=== PATIENT | female | born 1975 | race Caucasian/White ===

== ENCOUNTER 2021-02-05 06:00 | Emergency (ER) | payer BC ==
[2021-02-05] MEDS ORDERED: Meperidine PF 25 MG/ML SDV IVPUSH ONE (06:20)
[2021-02-05] MEDS ORDERED: Ondansetron 4 MG/2 ML SDV IVPUSH ONE (06:20)
[2021-02-05] MEDS ORDERED: Sodium Chloride 0.9% 1,000 ML IV ONE (06:20)
--- NOTE | 2021-02-05 06:28 | EDM.PDOC ---
<Conor Aguila P - Last Filed: 02/05/21 09:16> ED HPI GENERAL MEDICAL PROBLEM - General Chief Complaint: Abdominal Pain Stated Complaint: Abdominal pain, N/V Time Seen by Provider: 02/05/21 06:10 Source of Information: Reports: Patient History Limitations: Reports: No Limitations - History of Present Illness INITIAL COMMENTS - FREE TEXT/NARRATIVE: Patient presents the ER with ongoing 3 days of abdominal pain that she describes as a 10 out of 10 sharp stabbing dull pressure all over but more on the left side but it other place 2 days worth of nausea vomiting constantly at least 6-7 times a day with intermittent episodes of blood with the vomitus. No bowel movement for 3 days. Patient states she is try to eat but cannot she has been able to keep down some fluids but very little she denies any fever or chills back pain dysuria. Patient states she has had this type of episode more than 100 times in the last year or so and has been seen multiple times in the emergency room's unsure if she is ever had a CT though but last episode she did have x-rays I told her nothing was wrong she was discharged she has seen her primary care provider as well she thinks she may have had a EGD maybe a year ago and told it was normal. She says ever where she keeps going she does not get a true diagnosis or an answer of what is going on they always keep telling her she is just dehydrated. She cannot remember she is or had a colonoscopy or seen a GI specialist She has not taken any medication for the issues tonight She denies any alcohol usage or drug usage Onset: Gradual Duration: Day(s):, Week(s):, Chronic Location: Reports: Abdomen Quality: Reports: Dull, Pressure, Same as Previous Episode, Sharp, Stabbing Severity: Severe Improves with: Reports: None Worsens with: Reports: None Associated Symptoms: Reports: Nausea/Vomiting. Denies: Confusion, Chest Pain, Cough, Fever/Chills, Headaches, Loss of Appetite, Malaise, Shortness of Breath, Syncope Left upper abdomen Pain Score (Numeric/FACES): 10 - Related Data Allergies Allergy/AdvReac Type Severity Reaction Status Date / Time ibuprofen [From Motrin] Allergy Hives Verified 02/05/21 07:15 morphine Allergy Hives Verified 02/05/21 07:15 Home Meds: Home Meds . [No Known Home Meds] 02/05/21 [History] ED ROS GENERAL - Review of Systems Review Of Systems: See Below Constitutional: Reports: No Symptoms HEENT: Reports: No Symptoms Respiratory: Reports: No Symptoms Cardiovascular: Reports: No Symptoms Endocrine: Reports: No Symptoms GI/Abdominal: Reports: Abdominal Pain, Nausea, Vomiting. Denies: Anorexia, Black Stool, Bloody Stool, Constipation, Diarrhea, Decreased Appetite, Difficulty Swallowing, Distension, Flatus, Hematemesis, Hematochezia, Melena, Mucous in Stool, Stool Incontinence : Reports: No Symptoms Musculoskeletal: Reports: No Symptoms Skin: Reports: No Symptoms Neurological: Reports: No Symptoms Psychiatric: Reports: No Symptoms Hematologic/Lymphatic: Reports: No Symptoms Immunologic: Reports: No Symptoms ED EXAM, GI/ABD - Physical Exam Exam: See Below Exam Limited By: No Limitations General Appearance: Alert, WD/WN, No Apparent Distress, Anxious, Other (Patient noted upon entering the room laying in the bed shifting from sitting to lying with no issues been standing up vomiting been able to lay back down with no issues noted ) Eyes: Bilateral: Normal Appearance, EOMI (perrla no icterus noted) Nose: Normal Inspection, Normal Mucosa, No Blood Throat/Mouth: Normal Inspection, Normal Lips, Normal Teeth, Normal Gums, Normal Oropharynx, Normal Voice, No Airway Compromise, Other (Moist mucous membranes) Head: Atraumatic, Normocephalic Neck: Normal Inspection, Supple, Non-Tender, Full Range of Motion Respiratory/Chest: No Respiratory Distress, Lungs Clear, Normal Breath Sounds, No Accessory Muscle Use, Chest Non-Tender Cardiovascular: Normal Peripheral Pulses, Regular Rate, Rhythm, No Edema, No Gallop, No JVD, No Murmur, No Rub GI/Abdominal Exam: Normal Bowel Sounds, Soft, No Organomegaly, No Distention, No Abnormal Bruit, Tender, Other (Patient had no tenderness palpation with stethoscope but diffuse tenderness to palpation generalized she had negative pelvic rock negative obturator negative heel slap no CVA tenderness noted bilateral). No: Non-Tender, Guarding, Rigid, Rebound Back Exam: Normal Inspection, Full Range of Motion Extremities: Normal Inspection, Normal Range of Motion, No Pedal Edema, Normal Capillary Refill Neurological: Alert, Oriented, CN II-XII Intact, Normal Cognition, No Motor/Sensory Deficits Psychiatric: Normal Affect, Normal Mood Skin Exam: Warm, Dry, Intact, Normal Color, No Rash Course - Vital Signs Text/Narrative:: CBC CMP CRP UA urine UDS 1 L normal saline bolus with Zofran 8 mg Demerol [address] abdomen pelvis with IV contrast White count 16,000 potassium 3.2 BUN/creatinine 20/1.9 UDS positive THC negative test disposition on CT abdomen pelvis held up secondary to no rosalba on staff yet Patient was rechecked states she is still hurting she usually gets Dilaudid she says but has a morphine allergy Patient admits she has not taken her blood pressure medicine the last 2 days but she is unsure of what it is Will finish the bag normal saline bolus then go to a 20 mEq potassium rider . metoprolol 50 mg p.o. was given secondary to this is patient's daily medication we will recheck blood pressure prior to discharge Contrast was held secondary to BUN and creatinine on the scan. Care was turned over with Basia at 915 for disposition Departure - Departure Disposition: Home, Self-Care 01 Clinical Impression: Abdominal pain, Hyperkalemia, Nausea & vomiting, Marijuana abuse, Hypertension - Discharge Information *PRESCRIPTION DRUG MONITORING PROGRAM REVIEWED*: No *COPY OF PRESCRIPTION DRUG MONITORING REPORT IN PATIENT ULICES: No Instructions: Hypertension, Adult, Abdominal Pain, Adult Referrals: PCP,Not In Area [Primary Care Provider] - Forms: ED Department Discharge Additional Instructions: 1. Push fluids 2. Stevens diet 3. Carafate 1 gm three times a day prior to meals 4. Protonix 40 mg daily 5. See primary care provider on return to [place], may need further endoscopy. - Problem List & Annotations (1) Abdominal pain SNOMED Code(s): 47000623 Code(s): R10.9 - UNSPECIFIED ABDOMINAL PAIN Status: Acute Current Visit: Yes (2) Hyperkalemia SNOMED Code(s): 83459635 Code(s): E87.5 - HYPERKALEMIA Status: Acute Current Visit: Yes (3) Marijuana abuse SNOMED Code(s): 41875473 Code(s): F12.10 - CANNABIS ABUSE, UNCOMPLICATED Status: Acute Current Visit: Yes (4) Nausea & vomiting SNOMED Code(s): 01384787 Code(s): R11.2 - NAUSEA WITH VOMITING, UNSPECIFIED Status: Acute Current Visit: Yes <MendezNina Mueller - Last Filed: 02/05/21 10:02> Course - Vital Signs Last Recorded V/S: Last Vital Signs Temp 97.3 F 02/05/21 06:00 Pulse 65 02/05/21 09:10 Resp 16 02/05/21 06:00 BP 161/105 H 02/05/21 09:10 Pulse Ox 98 02/05/21 06:00 - Orders/Labs/Meds Orders: Active Orders 24 hr Category Date Time Status Metoprolol Succinate [Toprol XL] Med 02/06/21 08:00 Active 50 mg PO DAILY Medication Orders Metoprolol Succinate (Metoprolol Succinate 50 Mg Tab.Er) 50 mg PO DAILY RABIA Last Admin: 02/05/21 09:10 Dose: 50 mg Documented by: JAMEL Labs: Laboratory Tests 02/05/21 02/05/21 02/05/21 Range/Units 06:49 06:49 07:10 WBC 16.7 H (4.0-10.0) x10^3/uL RBC 5.23 (4.00-5.50) x10^6/uL Hgb 16.1 H (12.0-16.0) g/dL Hct 47.3 H (33.0-47.0) % MCV 90.4 (78.0-93.0) fL MCH 30.8 (26.0-32.0) pg MCHC 34.0 (32.0-36.0) g/dL RDW Coeff of Ashley 13.4 (10.0-15.0) % Plt Count 344 (130-400) x10^3/uL Immature Gran % (Auto) 0.20 (0.00-0.43) % Neut % (Auto) 80.4 H (50.0-80.0) % Lymph % (Auto) 11.7 L (25.0-50.0) % Wood % (Auto) 7.4 (2.0-11.0) % Eos % (Auto) 0.2 (0.0-4.0) % Baso % (Auto) 0.1 L (0.2-1.2) % Neut # (Auto) 13.4 H (1.8-7.7) x10^3/uL Lymph # (Auto) 2.0 (1.0-4.8) x10^3/uL Wood # (Auto) 1.2 H (0.0-0.8) x10^3/uL Eos # (Auto) 0.0 (0.0-0.5) x10^3/uL Baso # (Auto) 0.0 (0.0-0.2) x10^3/uL Immature Gran # (Auto) 0.04 (0.00-0.07) x10^3/uL Sodium 139 (136-145) mmol/L Potassium 3.2 L (3.5-5.1) mmol/L Chloride 101 (98-107) mmol/L Carbon Dioxide 25 (21-32) mmol/L Anion Gap 16.2 H (5-15) mmol/L BUN 20 H (7-18) mg/dL Creatinine 1.9 H (0.55-1.02) mg/dL Est Cr Clr Drug Dosing 35.37 mL/min Estimated GFR (MDRD) 29 Glucose 142 H (70-99) mg/dL Calcium 9.7 (8.5-10.1) mg/dL Corrected Calcium 9.1 (8.5-10.1) mg/dL Total Bilirubin 0.4 (0.2-1.0) mg/dL AST 14 L (15-37) U/L ALT 14 (14-59) U/L Alkaline Phosphatase 50 (46-116) U/L C-Reactive Protein < 0.2 (<=0.9) mg/dL Total Protein 8.4 H (6.4-8.2) g/dL Albumin 4.7 (3.4-5.0) g/dL Globulin 3.7 Albumin/Globulin Ratio 1.27 Urine Color (YELLOW) Urine Appearance (CLEAR) Urine pH (5.0-8.0) Ur Specific Anza Urine Protein (NEGATIVE) mg/dL Urine Glucose (UA) (NEGATIVE) mg/dL Urine Ketones (NEGATIVE) mg/dL Urine Occult Blood (NEGATIVE) Urine Nitrite (NEGATIVE) Urine Bilirubin (NEGATIVE) Urine Urobilinogen (0.2) EU/dL Ur Leukocyte Esterase (NEGATIVE) Urine RBC (NOT SEEN) /HPF Urine WBC (NOT SEEN) /HPF Ur Squamous Epith Cells (NOT SEEN) /HPF Calcium Oxalate Crystal (NOT SEEN) /HPF Urine Bacteria (NOT SEEN) /HPF Urine Mucus (NOT SEEN) /LPF Urine HCG, Qual Negative (NEGATIVE) Urine Opiates Screen (NEGATIVE) Ur Buprenorphine Scrn (NEGATIVE) Ur Oxycodone Screen (NEGATIVE) Urine Methadone Screen (NEGATIVE) Ur Barbiturates Screen (NEGATIVE) Ur Phencyclidine Scrn (NEGATIVE) Ur Amphetamine Screen (NEGATIVE) U Methamphetamines Scrn (NEGATIVE) Urine MDMA Screen (NEGATIVE) U Benzodiazepines Scrn (NEGATIVE) U Cocaine Metab Screen (NEGATIVE) U Marijuana (THC) Screen (NEGATIVE) 02/05/21 02/05/21 Range/Units 07:10 07:10 WBC (4.0-10.0) x10^3/uL RBC (4.00-5.50) x10^6/uL Hgb (12.0-16.0) g/dL Hct (33.0-47.0) % MCV (78.0-93.0) fL MCH (26.0-32.0) pg MCHC (32.0-36.0) g/dL RDW Coeff of Ashley (10.0-15.0) % Plt Count (130-400) x10^3/uL Immature Gran % (Auto) (0.00-0.43) % Neut % (Auto) (50.0-80.0) % Lymph % (Auto) (25.0-50.0) % Wood % (Auto) (2.0-11.0) % Eos % (Auto) (0.0-4.0) % Baso % (Auto) (0.2-1.2) % Neut # (Auto) (1.8-7.7) x10^3/uL Lymph # (Auto) (1.0-4.8) x10^3/uL Wood # (Auto) (0.0-0.8) x10^3/uL Eos # (Auto) (0.0-0.5) x10^3/uL Baso # (Auto) (0.0-0.2) x10^3/uL Immature Gran # (Auto) (0.00-0.07) x10^3/uL Sodium (136-145) mmol/L Potassium (3.5-5.1) mmol/L Chloride (98-107) mmol/L Carbon Dioxide (21-32) mmol/L Anion Gap (5-15) mmol/L BUN (7-18) mg/dL Creatinine (0.55-1.02) mg/dL Est Cr Clr Drug Dosing mL/min Estimated GFR (MDRD) Glucose (70-99) mg/dL Calcium (8.5-10.1) mg/dL Corrected Calcium (8.5-10.1) mg/dL Total Bilirubin (0.2-1.0) mg/dL AST (15-37) U/L ALT (14-59) U/L Alkaline Phosphatase (46-116) U/L C-Reactive Protein (<=0.9) mg/dL Total Protein (6.4-8.2) g/dL Albumin (3.4-5.0) g/dL Globulin Albumin/Globulin Ratio Urine Color Yellow (YELLOW) Urine Appearance Cloudy H (CLEAR) Urine pH 5.5 (5.0-8.0) Ur Specific Anza 1.025 Urine Protein >=300 H (NEGATIVE) mg/dL Urine Glucose (UA) Negative (NEGATIVE) mg/dL Urine Ketones Trace H (NEGATIVE) mg/dL Urine Occult Blood Small H (NEGATIVE) Urine Nitrite Negative (NEGATIVE) Urine Bilirubin Small H (NEGATIVE) Urine Urobilinogen 0.2 (0.2) EU/dL Ur Leukocyte Esterase Negative (NEGATIVE) Urine RBC 0-5 (NOT SEEN) /HPF Urine WBC 5-10 H (NOT SEEN) /HPF Ur Squamous Epith Cells Few H (NOT SEEN) /HPF Calcium Oxalate Crystal Few H (NOT SEEN) /HPF Urine Bacteria Rare (NOT SEEN) /HPF Urine Mucus Rare H (NOT SEEN) /LPF Urine HCG, Qual (NEGATIVE) Urine Opiates Screen Negative (NEGATIVE) Ur Buprenorphine Scrn Negative (NEGATIVE) Ur Oxycodone Screen Negative (NEGATIVE) Urine Methadone Screen Negative (NEGATIVE) Ur Barbiturates Screen Negative (NEGATIVE) Ur Phencyclidine Scrn Negative (NEGATIVE) Ur Amphetamine Screen Negative (NEGATIVE) U Methamphetamines Scrn Negative (NEGATIVE) Urine MDMA Screen Negative (NEGATIVE) U Benzodiazepines Scrn Negative (NEGATIVE) U Cocaine Metab Screen Negative (NEGATIVE) U Marijuana (THC) Screen Positive H (NEGATIVE) Meds: Medications Generic Name Dose Route Start Last Admin Trade Name Freq PRN Reason Stop Dose Admin Metoprolol Succinate 50 mg 02/06/21 08:00 02/05/21 09:10 Metoprolol Succinate 50 Mg Tab.Er PO 50 mg DAILY RABIA Administration Discontinued Medications Generic Name Dose Route Start Last Admin Trade Name Galdino PRN Reason Stop Dose Admin Al Hydroxide/Mg Hydroxide 30 ml 02/05/21 09:31 Gi Cocktail Oral Solution 30 Ml PO 02/05/21 09:32 ONETIME ONE Dicyclomine HCl 20 mg 02/05/21 07:23 02/05/21 08:01 Dicyclomine 20 Mg/2 Ml Sdv IM 02/05/21 07:24 20 mg ONETIME ONE Administration Sodium Chloride 1,000 mls @ 999 mls/hr 02/05/21 06:20 02/05/21 06:45 Normal Saline IV 02/05/21 07:20 999 mls/hr ONETIME ONE Administration Meperidine HCl 25 mg 02/05/21 06:20 02/05/21 06:55 Meperidine Pf 25 Mg/Ml Sdv IVPUSH 02/05/21 06:21 25 mg ONETIME ONE Administration Metoprolol Succinate Confirm 02/05/21 09:19 Metoprolol Succinate 50 Mg Tab.Er Administered 02/05/21 09:20 Dose 50 mg .ROUTE .STK-MED ONE Ondansetron HCl 4 mg 02/05/21 06:20 02/05/21 06:53 Ondansetron 4 Mg/2 Ml Sdv IVPUSH 02/05/21 06:21 4 mg ONETIME ONE Administration Ondansetron HCl Confirm 02/05/21 06:58 02/05/21 07:21 Ondansetron 4 Mg/2 Ml Sdv Administered 02/05/21 06:59 Not Given Dose 4 mg .ROUTE .STK-MED ONE Pantoprazole Sodium 40 mg 02/05/21 09:33 Pantoprazole 40 Mg Vial IVPUSH 02/05/21 09:34 ONETIME ONE - Re-Assessments/Exams Free Text/Narrative Re-Assessment/Exam: 02/05/21 09:45 Patient continues to have dry heaves. Protonix given IV. 02/05/21 09:58 CT scan is normal. Did discuss with patient. Continues to ask for something for pain. Questioned if pain and vomiting could be associated with marijuana use. States took the marijuana to help with the pain. Advised will need to follow up with her primary provider to determine if further need for an EGD again due to the blood in her emesis. Has been forcefully vomiting and could be causing further bleeding, emesis is blood-tinged, no gross blood noted. Will discharge home on Protonix and Carafate. Has 3 hours to travel so did agree to give her a tramadol for the ride to home in [place]. Discussed her retching so may have difficulty with keeping med down. Departure - Departure Time of Disposition: 10:01 Condition: Fair Sepsis Event Note (ED) - Focused Exam Vital Signs: Vital Signs Temp Pulse Pulse Resp BP BP Pulse Ox 02/05/21 09:10 65 161/105 H 02/05/21 06:00 97.3 F 66 16 194/103 H 98
[2021-02-05] MEDS ORDERED: Ondansetron 4 MG/2 ML SDV ONE (06:58)
[2021-02-05 07:17] LABS: CHLORIDE,CL 101 mmol/L (98-107); SODIUM,NA 139 mmol/L (136-145)
[2021-02-05 07:18] LABS: ANION GAP 16.2 mmol/L (5-15)
[2021-02-05] MEDS ORDERED: Dicyclomine 20 MG/2 ML SDV IM ONE (07:23)
[2021-02-05 07:34] LABS: BARBITURATE SCREEN,URINE NEGATIVE (NEGATIVE)
[2021-02-05 07:35] LABS: BENZODIAZEPINES SCREEN,URINE NEGATIVE (NEGATIVE); BUPRENORPHINE SCREEN,URINE NEGATIVE (NEGATIVE); METHAMPHETAMINE SCREEN, URINE NEGATIVE (NEGATIVE); THC SCREEN,URINE 50 NG/ML POSITIVE (NEGATIVE)
[2021-02-05] MEDS ORDERED: Metoprolol Succinate 50 MG Tab.ER ONE (09:19)
[2021-02-05] MEDS ORDERED: GI Cocktail Oral Solution 30 ML PO ONE (09:31)
[2021-02-05] MEDS ORDERED: Pantoprazole 40 MG Vial IVPUSH ONE (09:33)
--- NOTE | 2021-02-05 09:38 | CT ---
[id number] CT/CT Abdomen Pelvis WO IV EXAM: CT Abdomen Pelvis WO IV CLINICAL DATA: ABDOMINAL PAIN. COMPARISON STUDY: None. FINDINGS: Small sliding-type hiatal hernia. The liver, spleen, pancreas, adrenal glands and kidneys are unremarkable. No bowel obstruction or inflammation. The appendix is not well-visualized and may be surgically absent. No lymphadenopathy, free fluid, or pneumoperitoneum. Scattered changes of spondylosis the spine. No fracture or osseous lesion. IMPRESSION: No acute CT findings within the abdomen or pelvis to explain the patient's symptoms. Jordan Patel DO 02/05/21 0937 Thank you for allowing us to participate in the care of your patient.
[2021-02-05] MEDS ORDERED: traMADol 50 MG Tab PO ONE (10:07)
[2021-02-05] MEDS ORDERED: Acetaminophen/HYDROcodone 325-5 MG Tab PO ONE (10:11)
[2021-02-05] MEDS ORDERED: Potassium Chloride 10 MEQ Tab.ER PO ONE (10:24)
[2021-02-06] MEDS ORDERED: Metoprolol Succinate 50 MG Tab.ER PO SCH (08:00)
== END 2021-02-05 10:44 | disposition home or self-care (01) ==
LOC: VM.ED 06:00
DX: R10.12 Left upper quadrant pain (principal); R11.2 Nausea with vomiting, unspecified; E87.5 Hyperkalemia; F12.10 Cannabis abuse, uncomplicated; I10 Essential (primary) hypertension; Z88.5 Allergy status to narcotic agent; Z88.8 Allergy status to other drugs, medicaments and biological substances
CPT/HCPCS: 36415; 74176; 80053; 80305-QW; 81001; 81025; 85025; 86140; 96372; 96374; 96375; 99284; 99284-25; A9270-GY; C9113; J0500; J2175; J2405; J7030